=== PATIENT | male | born 1980 | race Caucasian/White ===

== ENCOUNTER 2025-02-17 14:43 | Outpatient (REF) | payer BC, SELFPAY ==
--- NOTE | ~2025-02-17 | XR_ITS ---
EXAMINATION: XR FOOT, LEFT CLINICAL INFORMATION: M79.675 - Pain in left toe(s) COMPARISON: None available. TECHNIQUE: AP, lateral, and oblique views of the left foot. FINDINGS: Minute marginal osteophytes are evident at the first MTP joint. There is no fracture. There is no joint diastases or malalignment. No fracture is evident. There is small enthesophyte at the Achilles insertion on calcaneus. There is a minute calcaneal spur at the plantar aponeurosis attachment. XR/XR foot LT min 3V IMPRESSION: Minimal degenerative change first MTP joint and small calcaneal spurs. Electronically signed by: Maximo Price MD 02/17/2025 05:30 PM EST
[2025-02-17 15:54] LABS: MANUAL DIFF FLAG NO
[2025-02-17 17:25] LABS: Hematocrit 46.4 % (42.0-52.0); Hemoglobin 15.3 g/dl (14.0-18.0); Imm Gran Abs Auto 0.04 X10*3/uL (0.00-0.03); Imm Gran Pct Auto 0.4 % (0.0-0.4); Lymphocytes Absolute Auto 2.4 X10*3/uL (1.2-4.9); Mean Corpuscular HGB Conc 33.0 g/dl (31.0-36.0); Mean Corpuscular Hemoglobin 28.0 pg (27.0-33.0); Mean Corpuscular Volume 85.0 fL (80.0-98.0); NRBC Abs Auto 0.000 X10*3/uL (0.0-0.012); NRBC Pct Auto 0.0 /100WBC (0.0-0.2); Platelet Count 376 X10*3/uL (160-400); Red Blood Count 5.46 X10*6/uL (4.60-5.80); White Blood Count 11.1 X10*3/uL (4.8-10.8)
[2025-02-17 18:01] LABS: Alanine Aminotransferase 24 U/L (0-40); Albumin Level 5.1 g/dL (3.5-5.0); Alkaline Phosphatase 82 U/L (39-117); Anion Gap 13 (12-20); Aspartate Amino Transferase 27 U/L (5-37); Blood Urea Nitrogen 12 mg/dL (9-16); Calcium 9.6 mg/dL (8.4-10.2); Carbon Dioxide 27 mmol/L (22-29); Chloride 105 mmol/L (96-108); Cholesterol 206 mg/dL (<200); Estimated Glomerular Filt Rate > 60; HDL Cholesterol 47 mg/dL (>40); Potassium 3.8 mmol/L (3.3-5.1); Sodium 141 mmol/L (135-145); Total Protein 7.8 g/dL (6.5-8.0); Triglycerides 80 mg/dL (<150); Uric Acid 8.8 mg/dL (3.4-7.0)
== END 2025-02-17 14:44 | disposition home or self-care (01) ==
LOC: HO.XRAY 14:43
PROVIDERS: PCP Internal Medicine; Visit Provider Internal Medicine
DX: Z00.00 Encounter for general adult medical examination without abnormal findings (principal); E78.1 Pure hyperglyceridemia; R73.01 Impaired fasting glucose; M79.675 Pain in left toe(s)
CPT/HCPCS: 36415; 73630; 80053; 80061; 83036; 84550; 85025; 96127

== ENCOUNTER 2025-02-17 14:43 | Outpatient (AMB) | payer BC, SELFPAY ==
--- NOTE | 2025-02-17 14:45 | A.OFFPC_ITS ---
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 Required: No Accompanied by: Self / Same As Patient Allergies No Known Allergies Allergy (Verified 02/17/25 14:51) Medication List - Last Reconciled 02/17/25 by Elo Pruett MD fenofibrate micronized 67 mg PO DAILY Tobacco use date assessed: 02/17/25 Dental Screening Dental Screen Date: 02/17/25 Did you have a dental visit in the last 12 months?: Yes Did you have a dental problem in the last 6 months where you did not have access to dental care?: No Was dental information given to patient?: Patient has dentist HPI HPI Comments History of Present Illness Details The patient is a 44 year old male presenting [facility] physical. Obesity: The patient has experienced a 9-pound weight loss from a previous weight of 229 pounds. The patient attributes this to significantly improved dietary habits, increased physical activity, and improved emotional well-being. Sleep Apnea: The patient has a history of sleep apnea and reports excellent sleep while using a CPAP machine. The patient has had a follow-up appointment with the sleep clinic and confirmed the equipment is functioning correctly. Hyperlipidemia/Hypertriglyceridemia/Prediabetes: The patient is prescribed fenofibrate. The patient reports being non-adherent for a period but has been taking it consistently for the past few weeks. Left Great Toe Pain: The patient reports a new issue of intermittent pain in the left great toe, which was diagnosed as tendinitis at an urgent care visit. The initial episode was severe, with an inability to plantar flex the toe, but subsequent flares have been less intense. The pain was managed with ibuprofen, ice, and elevation. 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 1. Little interest or pleasure in doing things: not at all 2. Feeling down, depressed, or hopeless: not at all 3. Trouble falling or staying asleep, or sleeping too much: not at all 4. Feeling tired or having little energy: not at all 5. Poor appetite or overeating: not at all 6. Feeling bad about yourself - or that you are a failure or have let yourself or your family down: not at all 7. Trouble concentrating on things, such as reading the newspaper or watching television: not at all 8. Moving or speaking so slowly that other people could have noticed. Or the opposite - being so fidgety or restless that you have been moving around a lot more than usual: not at all 9. Thoughts that you would be better off or of hurting yourself in some way: not at all Total score: 0 Depression Screening Interpretation: Negative Depression Screening Done: Yes 09654 - PHQ-9 Billing: Yes Source: Developed by Drs. Nabeel Martini, Katharina Chirinos, Pete Marin and colleagues, with an educational smiley from [employer]. AUDIT C Alcohol Use Questionnaire (AUDIT-C) 1. How often do you have a drink containing alcohol?: Monthly or less 2. How many drinks containing alcohol do you have on a typical day when you are drinking?: 1 or 2 3. How often do you have six or more drinks on one occasion?: Never Total Score: 1 Review of Systems Narrative Review of Systems - Constitutional: per hpi - Eyes: Denies blurry vision. - ENT: Gets checked at work due to occupation - Genitourinary: Denies any issues with urination. - Musculoskeletal: per hpi Physical exam (Primary Care) Vital Signs: Last Vital Signs Temp 97.1 F 02/17/25 14:50 Pulse 58 02/17/25 14:50 Resp 16 02/17/25 14:50 BP 120/82 02/17/25 14:50 Pulse Ox 98 02/17/25 14:50 Oxygen Delivery Method Room Air 02/17/25 14:50 BMI result Body Mass Index 32.3 Tobacco/Smoking Status: Tobacco use Status Tobacco use date assessed 02/17/25 02/17/25 14:54 Patient Tobacco Use Status Never used Tobacco 02/17/25 14:54 e-Cigarette/Vaping Use Never Used 02/17/25 14:54 PHQ-9: PHQ-9 Score PHQ-9: Total score 0 02/17/25 15:17 Depression Screening Interpretation: Negative Narrative Physical Exam - Gen: NAD - HEENT: Bilateral ear canals are clear. Oropharynx is without erythema. - Neck: no bruits - Cardiovascular: Regular rate and rhythm. Normal heart sounds. - Respiratory: Lungs are clear to auscultation bilaterally with no wheezing. - Abdomen: Bowel sounds are normoactive. Abdomen is soft, non-tender to palpation, and non-distended. - Extremities: No lower extremity edema. Good dorsalis pedis pulses are present bilaterally. Coding Level of Care Code Est Pt Prev Care 40-64y(36230) Complex visit Add On G2211 Diagnoses Routine medical exam Z00.00 Hypertriglyceridemia E78.1 Impaired fasting glucose R73.01 Additional Codes PHQ-9 - 36429 - PHQ-9 Billing: Yes ([id number]) Assessment & Plan Assessment & Plan (1) Routine medical exam: Code(s): Z00.00 - Encounter for general adult medical examination without abnormal findings Category: Medical (2) Hypertriglyceridemia: Code(s): E78.1 - Pure hyperglyceridemia Category: Medical (3) Impaired fasting glucose: Code(s): R73.01 - Impaired fasting glucose Category: Medical Plan Assessment and Plan 1. Health Maintenance - The patient is re-establishing care. - Labs will be drawn today. - Will review immunization records for Tdap status when obtained - Will follow up in 6 months. 2. Obesity - The patient has successfully lost 9 pounds through diet and exercise. - The patient is encouraged to continue these efforts with a goal of another 10- pound weight loss in the next 6 months. - A potential future intervention with Zepbound was discussed if weight loss plateaus, given its FDA approval for sleep apnea. 3. Sleep Apnea - Well-controlled with CPAP. - The patient reports excellent sleep and is adherent. - No changes to the current plan. 4. Hyperlipidemia and Prediabetes - The patient has a history of inconsistent adherence to fenofibrate but is now taking it regularly. - Fasting labs, including a lipid panel and A1c, have been ordered to assess cur rent status. 5. Left Great Toe Pain - The patient reports intermittent pain suggestive of tendinitis, but arthritis or a gout flare are also considerations. - A baseline x-ray of the left foot is ordered to evaluate for arthritic changes. - Lab work will be reviewed for gout risk factors. - Records will be requested from the patient's urgent care visit at [facility] [place] in [place]. 6. Preventative Care - The patient will turn 45 next year. - A referral will be placed with Gastroenterology now to initiate the process for a screening colonoscopy. Plan - Order fasting labs today, including A1c, lipid panel, and renal/liver function tests. - Order a left foot x-ray to be completed today to assess for underlying arthritis. - Place a referral to Gastroenterology for a screening colonoscopy consultation. - Request medical records from the patient's visit to [facility] [place] in [place]. - Review immunization records to verify the date of the last tetanus shot. - Schedule a follow-up appointment in six months to review progress, with a goal of 10 more pounds of weight loss. Discussion Notes I have discussed the plan with the patient, who is presenting to re-establish care. We reviewed the patient's recent 9-pound weight loss and set a goal for an additional 10-pound loss over the next six months. I explained the rationale for ordering fasting labs, including A1c and cholesterol, and the plan to refill the fenofibrate. Regarding the new left toe pain, I explained that we would get a baseline x-ray to check for arthritis and that the labs may also give insight into potential causes like gout. Patient Instructions - Please proceed to the lab location in the main entrance building to have your blood drawn and get a left foot x-ray today. - Continue your efforts with diet and exercise. Your goal is to lose another 10 pounds before your next visit in six months. - Continue to limit your soda intake. - Our referral team will call you within 2-3 weeks to schedule a consultation with the gastroenterology office for a future colonoscopy. Orders: Orders Complete Blood Count Auto Diff Today E78.1 - Pure hyperglyceridemia, R73.01 - Impaired fasting glucose, Z00.00 - Encounter for general adult medical examination without abnormal findings Lipid Panel Today E78.1 - Pure hyperglyceridemia, R73.01 - Impaired fasting glucose, Z00.00 - Encounter for general adult medical examination without abnor mal findings Comprehensive Met. Panel Today E78.1 - Pure hyperglyceridemia, R73.01 - Impaired fasting glucose, Z00.00 - Encounter for general adult medical examination without abnormal findings Hemoglobin A1c Today E78.1 - Pure hyperglyceridemia, R73.01 - Impaired fasting glucose, Z00.00 - Encounter for general adult medical examination without abnormal findings XR foot LT min 3V Today M79.675 - Pain in left toe(s) Uric Acid Today M79.675 - Pain in left toe(s) Referrals Gastroenterology Referral Z12.11 - Encounter for screening for malignant neoplasm of colon Medications: New fenofibrate micronized 67 mg PO DAILY 90 caps 3RF
[2025-02-17 14:50] VITALS: BP 120/82; PULSE 58; RESP 16; TEMP 36.2; O2SAT 98; BMI 32.3
--- OUTSIDE RECORDS SUMMARY | 2025-02-17 17:37 | XMS_ITS | Clinical Summary ---
Author Organization [facility] [facility] Address [address] [place] [id number] Care Team Providers Care Database Admin Name Role Phone Elo Pruett MD Primary Care Provider [phone]- [phone] Allergies No known active allergies Medications fenofibrate micronized (LOFIBRA) 67 mg capsule Take 1 capsule (67 mg total) by mouth. 06/30/2024 Active Active Problems Problem Noted Date Diagnosed Date Pain of toe of left foot 11/20/2024 Encounters Date Type Department Care Team Description 11/20/2024 12:30 PM EDT Office Visit [facility] [place] [address] Lio Grullon PA Pain of toe of left foot (Primary Dx) from Last 3 Months Family History Medical History Relation Name Comments scelosis of liver Mother Relation Name Status Comments Father Alive Mother Social History Tobacco Use Types Packs/Day Years Used Date Smoking Tobacco: Never Passive Smoke Exposure: Never Smokeless Tobacco: Never Tobacco Cessation:Counseling Given: Not Answered Alcohol Use Standard Drinks/Week Comments Yes 0 (1 standard drink = 0.6 oz pur e alcohol) Seldom Sex and Gender Information Value Date Recorded Sex Assigned at Not on file Legal Sex Male 9:13 AM EDT Gender Identity Not on file Sexual Orientation Not on file Last Filed Vital Signs Vital Sign Reading Time Taken Comments Blood Pressure 129/82 11/20/2024 12:30 PM EDT Pulse 78 11/20/2024 12:30 PM EDT Temperature 36.7 C (98 F) 11/20/2024 12:30 PM EDT Respiratory Rate 18 11/20/2024 12:30 PM EDT Oxygen Saturation 97% 11/20/2024 12:30 PM EDT Inhaled Oxygen Concentration - - Weight 99.8 kg (220 lb) 11/20/2024 12:30 PM EDT Height 175.3 cm (5' 9 ) 11/20/2024 12:30 PM EDT Body Mass Index 32.49 11/20/2024 12:30 PM EDT Plan of Treatment Health Maintenance Due Date Last Done Comments HIV screening 1993 Hepatitis C screening 1998 Lipid disorder screening 2020 Influenza vaccine 10/16/2024 Covid-19 vaccine series ( season) 2024 11/30/2020 Tetanus adult (Td q 10,TDAP once) 12/14/2031 12/13/2021, 11/28/2010, 11/28/2009 RSV Immunization (1 - 1-dose 75+ series) 07/19/2055 Meningococcal B Vaccine Aged Out No l onger eligible based on patient's age to complete this topic Meningococcal Vaccine Aged Out No radha sujata eligible based on patient's age to complete this topic Pneumococcal Vaccine (2 - 49 years) Aged Out No longer eligible b ased on patient's age to complete this topic Insurance [place] [address] [facility] Care Teams Database Admin Relationship Specialty Start Date End Date Elo Pruett MD [address] [id number] PCP - General Internal Medicine 11/20/24
--- OUTSIDE RECORDS SUMMARY | 2025-02-17 17:37 | XMS_ITS ---
Author Name [facility] Organization Unknown History of Medication Use Medication Directions Dispensed Refills Start Date End Date Stat fenofibrate micronized (LOFIBRA) 67 mg capsule Take 1 capsule (67 mg total) by mouth. 06/30/2024 active Problems Problem Status Onset Date Problem Type Date of Resoluti on Source Pain of toe of left foot active 2024-11-20 [facility] Encounters Encounter Type Encounter Reason Primary Diagnosis Location Date Ambulatory Pain in limb Pain in limb [facility] 07/2024 Care Team Organization Name Specialty Phone Email Start Date End Da billie [facility] DANIELLA ANTOINE Primary Care 0 11/20/2024
== END 2025-02-17 15:32 | disposition home or self-care (01) ==
LOC: HO.HMCHD 14:44
PROVIDERS: PCP Internal Medicine; Visit Provider Internal Medicine
DX: Z00.00 Encounter for general adult medical examination without abnormal findings (principal); E78.1 Pure hyperglyceridemia; R73.01 Impaired fasting glucose

== ENCOUNTER → 2025-02-17 15:53 | Outpatient (BNV) | payer BC, SELFPAY | PROVIDERS: PCP Internal Medicine; Visit Provider Radiology Diagnostic Radiology | DX: M19.072 Primary osteoarthritis, left ankle and foot (principal) | CPT/HCPCS: 73630 ==